=== PATIENT | female | born 1980 | race Caucasian/White ===

== ENCOUNTER → 2016-10-30 | Emergency (ER) | payer OTHER ==
[2016-10-30 08:34] VITALS: BP 114/65; PULSE 54; RESP 14; TEMP 97.9; O2SAT 98
--- NOTE | 2016-10-30 09:00 | UCPHY ---
H & P Time Seen by Provider: 10/30/16 08:44 Patient Type: New HPI/ROS: This patient complains of ear pain for 1 day. She explains that the pain radiates to her jaw and she describes the nature the pain is achy. Peak intensity 7/10 currently moderate. She reports that there is a tender area in the anterior left external canal that is the source of her pain. She is able palpate this with her finger. There is slight swelling associated with the area of tenderness. Symptoms started over the past few days and she reports no exacerbating factors. ROS: No fevers. HEENT: No drainage from the ear. No feeling of the pain in the ear. No change in her hearing. No nasal congestion. No right ear symptoms. 7 point ROS is otherwise negative. Past Medical/Surgical History: Otherwise healthy Smoking Status: Never smoked Physical Exam: Physical Exam Vital signs are normal. General: No acute distress HEENT: Nose: Clear oropharynx no erythema or exudates. Ears: Right external canal and TM are clear left external canals notable for mild swelling to the anterior aspect of the external canal just proximal to the tragus. There is associated tenderness and mild erythema. There is no significant exudates. Tympanic membrane is clear. Eyes: Pupils equal and react to light. Extraocular motions are intact. Lungs: No respiratory distress. Pulses are 2+ and symmetric in the affected extremity. Skin: No rash or pallor. Neuro: Alert with no sensorimotor deficits. Initial differential diagnosis: Otitis externa, skin cancer, early furuncle Constitutional: Initial Vital Signs Temperature (C) 36.6 C 10/30/16 08:24 Heart Rate 54 L 10/30/16 08:24 Respiratory Rate 14 10/30/16 08:24 Blood Pressure 114/65 10/30/16 08:24 O2 Sat (%) 98 10/30/16 08:24 O2 Delivery Mode Room Air Allergies/Adverse Reactions: No Known Allergies Allergy (Verified 10/30/16 08:34) Home Medications: Medication Instructions Recorded Ciprofloxacin/Dexamethasone 4 drops OTIC TID #1 bottle 10/30/16 [Ciprodex] Hydrocodone/APAP 5/325 [[place] 1 - 2 tab PO Q4PRN PRN #20 tab 10/30/16 5/325 (*)] MDM/Departure - MDM ED Course/Re-evaluation: This does not appear to be a classic otitis externa. Seems like an isolated area of the skin. I counseled regarding this. She will follow up with ENT if not improving with treatment plan - Depart Disposition: Home, Routine, Self-Care Clinical Impression: Otitis externa Qualifiers: Otitis externa type: unspecified type Laterality: left Chronicity: acute Qualified Code(s): H60.502 - Unspecified acute noninfective otitis externa, left ear Condition: Good Instructions: Otitis Externa (ED) Additional Instructions: Diagnosis: Left otitis externa Plan: Ibuprofen and Tylenol or Vicodin for discomfort as needed Ciprodex ear drops as prescribed Call Dr. Jordan-ENT specialist arrange follow-up appointment for further evaluation if symptoms are not resolving with treatment plan. Prescriptions: Ciprofloxacin/Dexamethasone [Ciprodex] 4 drops OTIC TID #1 bottle Hydrocodone/APAP 5/325 [[place] 5/325 (*)] 1 - 2 tab PO Q4PRN PRN #20 tab PRN Reason: Pain Referrals: Queta Cortez MD [Primary Care Provider] - As per Instructions Catherine Jordan MD [Medical Doctor] - As per Instructions - PQRS PQRS Measurement: NA
== END | disposition home or self-care (01) ==
LOC: CED 08:16
DX: H60.502 Unspecified acute noninfective otitis externa, left ear (principal)
CPT/HCPCS: 99203-PO